=== PATIENT | male | born 1975 | race Caucasian/White ===

== ENCOUNTER 2018-03-16 14:31 | Observation (INO) ==
--- NOTE | 2018-03-16 14:36 | EKG Report ---
Test Performed on : 03/16/2018 2:29:08 PM Test Reason : cp Blood Pressure : / mmHG Vent. Rate : 093 BPM Atrial Rate : 093 BPM P-R Int : 162 ms QRS Dur : 088 ms QT Int : 354 ms P-R-T Axes : 031 016 018 degrees QTc Int : 440 ms Normal sinus rhythm. Normal ECG When compared with ECG of 16-JUN-2017 06:41, No significant change was found Unconfirmed Result
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
[2018-03-16 15:19] LABS: BASO# 0.01 X1000 (0.0-0.2); BASO% 0.2 % (0.0-0.8); EOS# 0.33 X1000 (0.0-0.7); HEMATOCRIT 39.8 % (42.0-52.0); HEMOGLOBIN 13.3 g/dL (14.0-18.0); LYMPH# 1.38 X1000 (1.2-3.4); LYMPH% 21.1 % (20.5-51.1); MCH 30.5 PG (27-31); MCHC 33.4 g/dL (33-37); MCV 91.3 FL (81-99); MONO# 0.59 X1000 (0.11-0.59); MPV 9.8 FL (7.4-10.4); NEUT# 4.24 X1000 (1.4-6.5); NEUT% 64.7 % (42.2-75.2); PLT 303 X1000 (130-400); RBC 4.36 XMIL (4.7-6.1); RDW 12.5 % (11.5-14.5); WBC 6.55 X1000 (4.8-10.8)
[2018-03-16 15:21] LABS: BILIRUBIN URINE NEGATIVE (NEGATIVE); BLOOD URINE NEGATIVE (NEGATIVE); COLOR YELLOW; GLUCOSE URINE NEGATIVE (NEGATIVE); KETONE URINE NEGATIVE (NEGATIVE); LEUKOCYTES URINE NEGATIVE (NEGATIVE); NITRITE URINE NEGATIVE (NEGATIVE); PH URINE 6.5; PROTEIN URINE NEGATIVE (NEGATIVE); SP GRAVITY URINE 1.013; TURBIDITY URINE CLEAR (CLEAR); UR EPITHELIAL CELLS <10 /HPF (<10); URINE BACTERIA NEGATIVE /HPF; URINE RBC <10 /HPF (<10); URINE SOURCE CLEAN CATCH; URINE WBC <10 /HPF (<10); UROBILINOGEN URINE NORMAL (NORMAL)
[2018-03-16 15:30] LABS: AGAP 12; BUN 16 mg/dL (8-22); CALCIUM 9.5 mg/dL (8.8-10.2); CHLORIDE 100 mmol/L (98-107); CK PROFILE 194 U/L (24-204); COSMO 279; CREATININE 1.1 mg/dL (0.7-1.2); ESTIMATED GFR > 60; GLUCOSE 100 mg/dL (70-104); POTASSIUM 4.2 mmol/L (3.5-5.1); SODIUM 139 mmol/L (136-145); TCO2 27 mmol/L (25-35)
[2018-03-16 15:34] LABS: UR AMPHETAMINES QUAL NONE DETECTED (NONE DETECT); UR BARBITUATES QUAL NONE DETECTED (NONE DETECT); UR BENZODIAZEPIN QUAL PRESUMPTIVE POSITIVE (NONE DETECT); UR CANNABINOIDS QUAL NONE DETECTED (NONE DETECT); UR COCAINE QUAL NONE DETECTED (NONE DETECT); UR METHADONE QUAL NONE DETECTED (NONE DETECT); UR OPIATES QUAL NONE DETECTED (NONE DETECT); UR OXYCODONE QUAL NONE DETECTED (NONE DETECT); UR PCP QUAL NONE DETECTED (NONE DETECT)
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
[2018-03-16] MEDS ORDERED: TYLENOL PO PRN (18:02)
[2018-03-16] MEDS ORDERED: ZOFRAN IV PRN (18:02)
[2018-03-16] MEDS: NORCO-7.5 PO PRN (18:22)
[2018-03-16] MEDS: KLONOPIN PO SCH ×2 (18:22→20:32)
[2018-03-17] MEDS: NORCO-7.5 PO PRN ×3 (00:20→12:22)
[2018-03-17 07:13] LABS: HEMATOCRIT 41.3 % (42.0-52.0); HEMOGLOBIN 13.3 g/dL (14.0-18.0); MCH 29.8 PG (27-31); MCHC 32.2 g/dL (33-37); MCV 92.4 FL (81-99); MPV 9.8 FL (7.4-10.4); RBC 4.47 XMIL (4.7-6.1); RDW 12.8 % (11.5-14.5); WBC 4.87 X1000 (4.8-10.8)
[2018-03-17 07:36] LABS: AGAP 10; BUN 14 mg/dL (8-22); CALCIUM 8.9 mg/dL (8.8-10.2); CHLORIDE 99 mmol/L (98-107); COSMO 271; ESTIMATED GFR > 60; GLUCOSE 98 mg/dL (70-104); MAGNESIUM 1.9 mg/dL (1.5-2.7); POTASSIUM 4.4 mmol/L (3.5-5.1); SODIUM 135 mmol/L (136-145); TCO2 26 mmol/L (25-35)
[2018-03-17] MEDS: KLONOPIN PO SCH (09:50)
[2018-03-17 11:36] VITALS: BP 118/67
--- NOTE | 2018-03-17 13:03 | DISCHARGE SUMMARY ---
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 He showed no sign of arrhythmia. There was no burn or soft tissue irritation seen on the right side of the cheek. He electrically remained unremarkable. All of his labs were unremarkable. Chemistries negative. So it was felt like he could go home. We discharged him in the afternoon of 03/17/2018. We will discharge him home on the same medications. He requested that he could get some pain medicine until he can see his primary care, so I will give him some hydrocodone. He is on Klonopin 1 mg b.i.d. cc: Teja Nath MD
--- NOTE | 2018-03-19 07:11 | EKG Report ---
Test Performed on : 03/17/2018 06:10:24 AM Test Reason : chest pain Blood Pressure : / mmHG Vent. Rate : 077 BPM Atrial Rate : 077 BPM P-R Int : 156 ms QRS Dur : 088 ms QT Int : 384 ms P-R-T Axes : 040 054 044 degrees QTc Int : 434 ms Normal sinus rhythm. Normal ECG When compared with ECG of 16-MAR-2018 14:29, (Unconfirmed) No significant change was found Confirmed by Gopi HOLMAN, Kolby Bryant ([id number]) on 03/19/2018 11:11:39 AM
== END 2018-03-17 13:18 | disposition home or self-care (01) ==
LOC: SUPCPDRO → ED 14:31 → 3N 14:31
PROVIDERS: ATTEND Emergency Medicine
CPT/HCPCS: 71010; 71045; 80048; 80101; 80301; 80307; 80324; 80345; 80346; 80353; 80358; 80361; 80365; 81001; 82550; 83605; 83735; 83992; 84484; 85025; 85027; 93005; 93010; 99285; A9270; G0431; G0434; G0479; G0480